=== PATIENT | female | born 1970 | race Asian ===

== ENCOUNTER 2019-02-19 18:37 | Emergency (ER) | payer BC ==
[2019-02-19 18:55] LABS: ADD MAN DIFF? NO
[2019-02-19 18:58] LABS: WHITE BLOOD COUNT 6.4 10^3/ul (4.8-10.8)
[2019-02-19 18:58] LABS: BASOPHIL # 0.1 10^3/ul (0.0-0.1); BASOPHILS % 0.9 % (0.0-2.0); EOSINOPHILS # 0.2 10^3/ul (0.0-0.5); EOSINOPHILS % 2.5 % (0.0-7.0); HEMATOCRIT 41.9 % (37.0-47.0); HEMOGLOBIN 13.6 g/dl (12.0-16.0); LYMPHOCYTES % 31.6 % (15.0-51.0); MEAN CORPUSCULAR HEMOGLOBIN 29.1 pg (29.0-33.0); MEAN CORPUSCULAR HGB CONC 32.5 g/dl (32.0-37.0); MEAN CORPUSCULAR VOLUME 89.5 fl (82.0-101.0); MEAN PLATELET VOLUME 9.2 fl (7.4-10.4); MONOCYTE # 0.7 10^3/ul (0.3-0.9); MONOCYTES % 11.2 % (0.0-11.0); NEUTROPHIL # 3.5 10^3/ul (1.6-7.5); NEUTROPHILS % 53.6 % (39.0-77.0); PLATELET COUNT 256 10^3/UL (140-415); RED BLOOD COUNT 4.68 10^6/ul (4.20-5.40); RED CELL DISTRIBUTION WIDTH 13.3 % (11.5-14.5)
[2019-02-19 19:18] LABS: ANION GAP 10 (5-13); BLOOD UREA NITROGEN 15 mg/dl (7-20); CALCIUM 9.1 mg/dl (8.4-10.2); CARBON DIOXIDE 28 mmol/L (21-31); CHLORIDE 101 mmol/L (97-110); CREATININE 0.61 mg/dl (0.44-1.00); Estimated GFR > 60 mL/min (>60); GLUCOSE 105 mg/dl (70-220); POTASSIUM 3.8 mmol/L (3.5-5.1); SODIUM 139 mmol/L (135-144)
[2019-02-19 19:30] LABS: TROPONIN-I < 0.012 ng/ml (0.000-0.120)
== END 2019-02-19 20:30 | disposition home or self-care (01) ==
LOC: E/R 18:37
DX: I10 Essential (primary) hypertension (principal); R55 Syncope and collapse
CPT/HCPCS: 36415; 80048; 82962; 84484; 85025; 99284-25